=== PATIENT | female | born 1960 | race Caucasian/White ===

== ENCOUNTER 2019-12-05 06:53 | Inpatient (IN) ==
[2019-11-28 17:27] LABS: Appearance,Urine HAZY; Bacteria,Urine 0 /hpf (0); Bilirubin,Urine NEG (NEG); Color,Urine YELLOW; Culture Indicated,Urine YES; Glucose,Urine (UA) NEGATIVE (NEG); Ketones,Urine NEG (NEG); Leukocyte Esterase,Urine 500 /uL (NEG); Mucus,Urine FEW /hpf (0); Nitrate,Urine NEG (NEG); Protein,Urine NEG (NEG); Specific Gravity,Urine 1.014 (1.000-1.035); Urine Blood NEG mg/dL (<0.03); Urine RBC 2 /hpf (0-1); Urine Squamous Epithelial Cell 2 /hpf (0-4); Urine WBC 21 /hpf (0-4); Urobilinogen,Urine NEG (NEG)
[2019-11-28 19:45] LABS: Basophils # (Auto) 0.01 K/mcL (0.00-0.30); Basophils % (Auto) 0.2 % (0.0-2.0); Blood Urea Nitrogen 14 mg/dl (6-20); Calcium 10.2 mg/dl (8.6-10.4); Carbon Dioxide 27 mmol/L (22-30); Chloride 99 mmol/L (96-108); Eosinophils # (Auto) 0.03 K/mcL (0.00-0.70); Eosinophils % (Auto) 0.7 % (0.0-7.0); Glomerular Filtration Rate 96; Glucose 93 mg/dL (70-105); Granulocytes % (Auto) 71.1 % (38.0-78.0); Hemoglobin 12.4 g/dL (11.2-15.7); Lymphocytes # (Auto) 0.74 K/mcL (1.50-4.80); Mean Cell Volume 102.5 fL (80.0-100.0); Mean Corpuscular HGB Conc 33.5 g/dL (31.0-36.0); Mean Platelet Volume 9.6 fL (7.4-10.4); Monocytes # (Auto) 0.41 K/mcL (0.10-0.90); Platelet Count 208 K/mcL (140-440); RBC 3.61 M/mcL (3.59-5.38); Red Cell Distribution Width 12.7 % (11.5-14.5); WBC 4.1 K/mcL (4.50-11.00)
[~2019-12-05 06:53] MED LIST: 0.9 % SODIUM CHLORIDE 9 ML, KETOROLAC 30 MG, ROPIVACAINE HCL/PF 49.5 ML, EPINEPHrine 0.... IJ SCH; ACETAMINOPHEN 500 MG TABLET PO SCH; CELECOXIB 200 MG CAPSULE PO SCH; PREGABALIN 75 MG CAPSULE PO SCH; ceFAZolin 2 GM in DEXTROSE 5% IN WATER 50 ML IV SCH; oxyCODONE 10 MG TAB.ER.12H PO SCH
[2019-12-05] MEDS ORDERED: SCOPOLAMINE 1 PATCH PATCH TOPICAL PRN (07:00)
[2019-12-05] MEDS ORDERED: IPRATROPIUM/ALBUTEROL 3 ML AMPUL.NEB NEB PRN ×2 (07:00→10:19)
[2019-12-05] MEDS ORDERED: PHENYLEPHRINE 10 MG/ML VIAL IV ONE (09:15)
[2019-12-05] MEDS ORDERED: KETAMINE 100 MG/ML ML IV ONE (09:15)
[2019-12-05] MEDS ORDERED: LIDOCAINE HCL/PF 100 MG/5 ML SYRINGE IV ONE (09:15)
[2019-12-05] MEDS ORDERED: GLYCOPYRROLATE 0.2 MG/ML VIAL IV ONE (09:15)
[2019-12-05] MEDS ORDERED: ONDANSETRON 4 MG/2 ML VIAL IV ONE (09:15)
[2019-12-05] MEDS ORDERED: ePHEDrine 50 MG/ML AMPUL IV ONE (09:15)
[2019-12-05] MEDS ORDERED: DEXAMETHASONE 10 MG/ML VIAL IV ONE (09:15)
[2019-12-05] MEDS ORDERED: TRANEXAMIC ACID 1,000 MG/10 ML VIAL IV ONE ×2 (09:15→10:20)
[2019-12-05] MEDS ORDERED: PROPOFOL 200 MG/20 ML VIAL IV ONE (09:15)
[2019-12-05] MEDS ORDERED: GENTAMICIN SULFATE 800 MG/20 ML VIAL IR ONE (09:36)
[2019-12-05] MEDS ORDERED: NALOXONE HCL 0.4 MG/ML VIAL IV PRN (10:19)
[2019-12-05] MEDS ORDERED: BENZOCAINE/MENTHOL 1 LOZENGE PO PRN ×2 (10:19→10:20)
[2019-12-05] MEDS ORDERED: diphenhydrAMINE 50 MG/ML VIAL IV PRN (10:19)
[2019-12-05] MEDS ORDERED: PROMETHAZINE 25 MG/ML VIAL IV PRN (10:19)
[2019-12-05] MEDS ORDERED: KETOROLAC 15 MG/ML VIAL IV PRN (10:19)
[2019-12-05] MEDS ORDERED: FLUMAZENIL 0.1 MG/ML ML IV PRN (10:19)
[2019-12-05] MEDS ORDERED: fentaNYL 100 MCG/2 ML VIAL IV PRN (10:19)
[2019-12-05] MEDS ORDERED: LACTATED RINGERS 250 ML IV PRN (10:19)
[2019-12-05] MEDS ORDERED: MEPERIDINE 25 MG/ML SYRINGE IV PRN (10:19)
[2019-12-05] MEDS ORDERED: ONDANSETRON 4 MG/2 ML VIAL IV PRN ×2 (10:19→10:20)
[2019-12-05] MEDS ORDERED: ACETAMINOPHEN 325 MG TABLET PO PRN (10:20)
[2019-12-05] MEDS ORDERED: FLEETS ADULT ENEMA PR PRN (10:20)
[2019-12-05] MEDS ORDERED: HYDROmorphone 2 MG/ML VIAL IV PRN (10:20)
[2019-12-05] MEDS ORDERED: BISACODYL 10 MG SUPP.RECT PR PRN (10:20)
[2019-12-05] MEDS ORDERED: POLYETHYLENE GLYCOL 3350 17 GM PACKET PO PRN (10:20)
[2019-12-05] MEDS ORDERED: TEMAZEPAM 15 MG CAPSULE PO PRN (10:20)
[2019-12-05] MEDS ORDERED: MAGNESIUM HYDROXIDE 30 ML ORAL.SUSP PO PRN (10:20)
--- NOTE | 2019-12-05 10:20 | Brief Operative Note ---
Date of procedure: 12/05/19 Pre-op diagnosis: Right hip djd Post-op diagnosis: same Procedure: Right liz Grafts/Implants: Yes Anesthesia: GETA Surgeon: Ino Bautista Podiatric Medicine Professor: Ramesh Fontanez Estimated blood loss (cc): 100 Specimens Removed/Pathology: none sent Condition: stable Disposition: PACU
[2019-12-05] MEDS ORDERED: PREGABALIN 75 MG CAPSULE PO PRN (10:25)
[2019-12-05] MEDS ORDERED: oxyCODONE HCL 5 MG TABLET PO PRN (10:25)
[2019-12-05] MEDS ORDERED: LACTATED RINGERS 1,000 ML IV SCH ×2 (10:30)
--- NOTE | 2019-12-05 10:40 | Discharge Summary ---
Ortho Discharge - CRUZITO - Patient Instructions Diet: Regular Diet Activity: activity as tolerated, weight bearing as tolerated Total Hip Protocol: Follow activity instructions as provided by Physical Therapy. Dressing Care: May shower in 2 days - Follow Up Plan Disposition: Home, Self-Care Prognosis: Good Rehab Potential: Good I certify that the patient requires SNF services: No Overall status at discharge: patient is progressing back to baseline - Orders For Discharge Prescriptions: Docusate Sodium [Colace] 100 mg PO BID #60 cap Transmission Status: Pending to [facility] Aspirin [Ecotrin] 325 mg PO BID #60 tab.ec Transmission Status: Pending to [facility] oxyCODONE HCL [Oxycodone HCl] 5 mg PO Q4-6HP PRN #75 tab PRN Reason: Pain Prescription Printed
--- NOTE | 2019-12-05 10:50 | Operative Note ---
DATE OF OPERATION: 12/05/2019 PREOPERATIVE DIAGNOSIS: Right hip degenerative arthritis. POSTOPERATIVE DIAGNOSIS: Right hip degenerative arthritis. PROCEDURE: Right total hip arthroplasty. SURGEON: Ino Bautista M.D. EXTRACTIVE METALLURGIST: Ramesh Fontanez PA-C. The PA's assistance was required for the safe and efficient completion of the entire case. This provider's expertise and technical skill were required throughout the case. The PA assisted with preoperative coordination, intraoperative retraction, wound closure, dressing and splint application, as well as postoperative documentation and care coordination. ANESTHESIA: General LMA anesthesia. COMPLICATIONS: None. IMPLANTS: Size 52 cup with a 35 mm screw and a 36 mm ceramic ball with a hooded liner highly cross-linked polyethylene, size 4 stem. ESTIMATED BLOOD LOSS: About 100 mL. DESCRIPTION OF PROCEDURE: The patient was brought to the operating room and put to sleep with general LMA anesthesia. Once asleep, the patient had the right hip sterilely prepped and draped in the usual sterile fashion> She was put on the operative table, and the right hip was sterilely prepped. We made a superior approach to the hip after receiving antibiotics and tranexamic acid. We made a superior approach where we released the superior capsule and the piriformis and dislocated the hip superiorly. We made our neck cut at 32 mm from the center of hip rotation and then subluxed the hip anteriorly. I was then able to ream the acetabulum up to the size of 52 and implanted a 52 cup. Once this was done, we were able to place one 35 mm screw in the 52 mm cup with a highly cross-linked polyethylene hooded liner. We then prepared the stem, broached up to the size 4. We took images showing the legs to be symmetrically aligned in leg length and offset. We broached the femur up to the size 4, placed a size 4 cementless stem with a small amount of cement distally to help with stability. We irrigated thoroughly and reduced the hip with a standard neck length on the ball. The patient tolerated this well. There were no complications. We closed the capsule with #1 Ethibond, closed the fascial layer with #1 Stratafix, closed the skin with Stratafix and adhesive closure. The patient tolerated this well without complication. Blood loss was about 100 mL. RBAlejandra:isidoro Job ID: [id number] Doc ID: [id number] Ino Bautista MD
--- NOTE | 2019-12-05 11:41 | XRay Report ---
CLINICAL INFORMATION: Post-op Total Hip COMPARISON: Preoperative films 06/29/2018 FINDINGS: Right total hip prostheses is anatomically aligned. No osseous abnormality. Older left total hip prostheses is also anatomically aligned without infection or loosening. Soft tissue swelling over the surgical site. IMPRESSION: Negative Interpreted and Authenticated by: Mika Johnson 12/05/19
[2019-12-05] MEDS: FERROUS SULFATE 325 MG TABLET PO SCH ×2 (12:14→19:10)
[2019-12-05] MEDS: oxyCODONE HCL 5 MG TABLET PO PRN ×3 (12:14→20:31)
[2019-12-05] MEDS: KETOROLAC 15 MG/ML VIAL IV PRN ×2 (12:15→19:11)
--- NOTE | 2019-12-05 12:45 | XRay Report ---
CLINICAL INFORMATION: right total hip COMPARISON: None. FINDINGS: Intraoperative AP film of the pelvis shows femoral stem template in anatomic position. Right acetabular prosthesis is also anatomically aligned. No osseous abnormalities IMPRESSION: Intraoperative film as described Interpreted and Authenticated by: Mika Johnson 12/05/19
[2019-12-05] MEDS ORDERED: ceFAZolin 1 GM VIAL ONE (14:49)
[2019-12-05] MEDS: ceFAZolin 1 GM VIAL IV SCH ×2 (16:14→21:54)
[2019-12-05] MEDS: 0.9 % SODIUM CHLORIDE 10 ML SYRINGE IV SCH ×3 (16:15→21:55)
[2019-12-05] MEDS: ASPIRIN 325 MG ENTERIC COATED TABLET PO SCH (20:29)
[2019-12-05] MEDS: MONTELUKAST 10 MG TABLET PO SCH (20:29)
[2019-12-05] MEDS: SENNOSIDES 1 TABLET PO SCH (20:30)
[2019-12-05] MEDS: FAMOTIDINE 20 MG TABLET PO SCH (20:30)
[2019-12-05] MEDS: MELATONIN 3 MG TABLET PO SCH (20:30)
[2019-12-05] MEDS: DOCUSATE SODIUM 100 MG CAPSULE PO SCH (20:30)
[2019-12-05] MEDS: azaTHIOprine 50 MG TABLET PO SCH (20:32)
[2019-12-05] MEDS: FIBER GUMMIES PO SCH (20:35)
[2019-12-05] MEDS: CALCIUM W/VIT D3 500 MG TABLET PO SCH (20:40)
[2019-12-05] MEDS: MULTIVIT,THER IRON,CA,FA & MIN 1 TABLET PO SCH (20:41)
[2019-12-05] MEDS ORDERED: RANITIDINE HCL 150 MG PO SCH (21:00)
[2019-12-06] MEDS: oxyCODONE HCL 5 MG TABLET PO PRN ×4 (00:32→21:19)
[2019-12-06] MEDS: KETOROLAC 15 MG/ML VIAL IV PRN ×2 (04:21→19:45)
[2019-12-06] MEDS: 0.9 % SODIUM CHLORIDE 10 ML SYRINGE IV SCH ×2 (05:32→15:57)
[2019-12-06] MEDS: LACTATED RINGERS 1,000 ML IV SCH ×3 (06:07→16:35)
[2019-12-06] MEDS ORDERED: LACTATED RINGERS 500 ML IV ONE (08:05)
[2019-12-06] MEDS: predniSONE 5 MG TABLET PO SCH (08:30)
[2019-12-06] MEDS: LEVOTHYROXINE 88 MCG TABLET PO SCH (08:30)
[2019-12-06] MEDS: azaTHIOprine 50 MG TABLET PO SCH ×2 (08:49→21:29)
[2019-12-06] MEDS: CYANOCOBALAMIN (VITAMIN B-12) 500 MCG TABLET PO SCH (08:49)
[2019-12-06] MEDS: ASPIRIN 325 MG ENTERIC COATED TABLET PO SCH ×2 (08:51→21:19)
[2019-12-06] MEDS: FAMOTIDINE 20 MG TABLET PO SCH ×2 (08:51→21:24)
[2019-12-06] MEDS: FISH OIL 1,000 MG CAPSULE PO SCH (08:52)
[2019-12-06] MEDS: DOCUSATE SODIUM 100 MG CAPSULE PO SCH ×2 (08:52→21:18)
[2019-12-06] MEDS: FOLIC ACID 1 MG TABLET PO SCH (08:53)
[2019-12-06] MEDS: APPLE CIDER VINEGAR 600 MG PO SCH (08:56)
[2019-12-06] MEDS: ALBUTEROL SULFATE 1 PUFF INHALER INH SCH (08:58)
[2019-12-06] MEDS: [UNRECOGNIZED DRUG - OTHER] PO SCH (09:58)
[2019-12-06] MEDS: PROTANDIM PO SCH (09:59)
[2019-12-06] MEDS: ACETAMINOPHEN 500 MG TABLET PO SCH (10:02)
[2019-12-06] MEDS: FERROUS SULFATE 325 MG TABLET PO SCH ×2 (12:42→17:40)
[2019-12-06] MEDS ORDERED: HYDROCORTISONE SOD SUCC 100 MG VIAL IV ONE (12:44)
[2019-12-06] MEDS ORDERED: 0.9 % SODIUM CHLORIDE 250 ML IV SCH (12:45)
--- NOTE | 2019-12-06 13:03 | Internal Medicine Consult Note ---
Medical - CN: [facility] - Data of Consult Consult date: 12/06/19 Requesting physician: Ino Bautista - Consult Narrative Reason for consult: hypotension History of present illness: Ms. Wilson is a 59 year old F Presented yesterday for elective total right hip arthroplasty. During the night she had a little bit of nausea vomiting and poor sleep as she usually takes a sleep aid at night. Dates she is felt relatively well. However she did note she did get some light headedness when she walked to the bathroom. Per the nursing she has had low blood pressures today. Blood pressures have been I believe 1 reported 60 this morning typically 80s to 90s. She does take prednisone 2.5 mg daily for relapsing polychondritis. Her hematocrit is noted have dropped quite a bit from a preop lab. On the she had a hematocrit of 37. This morning she was 22.7 with a follow-up at 10:00 which is 22. Dressing appears to be intact notes any significant bruising. No shortness of breath. No chest pain. Denies diarrhea. Review of Systems: Pertinent positives as above. Denies headache/fever/chills/nausea/vomiting/chest or abdominal pain/cough/dyspnea/diarrhea. Remaining 10 point review of system reviewed negative CC: Ino Bautista Medical - CN: [facility] Surgical history: Medical History (Last Updated 08/03/18 @ 17:54 by Rosemary Del Angel DNP, JACKIE) Insomnia (Chronic) Hypothyroidism (Chronic) Hip pain, chronic (Chronic) Joint pain (Chronic) Arthritis (Chronic) Efrain's disease (Resolved ~1996) Asthma (Chronic) Long-term current use of steroids (Chronic) Encounter for long-term current use of other high-risk medications (Chronic) Osteoarthritis of lumbar spine (Chronic) Rheumatic disease (Chronic) Relapsing polychondritis (Chronic ~2014) Candidiasis of mouth (Resolved) Elevated liver function tests (Resolved) Past Surgical History (Last Reviewed 08/03/18 @ 16:21 by Rosemary Del Angel DNP, JACKIE) History of laparotomy (Chronic ~2005) History of hip replacement (Chronic ~2014) History of cataract surgery (Chronic) History of hysterectomy (Chronic ~1996) Hx of colonoscopy (Chronic) Family History (Last Reviewed 08/03/18 @ 16:21 by Rosemary Del Angel DNP, JACKIE) Mother Arthritis Diabetes Hip dysplasia COPD (chronic obstructive pulmonary disease) Father Diabetes Hypertension Heart attack Grandfather Thyroid disease Social History (Last Updated 08/03/18 @ 17:57 by Rosemary Del Angel, DNP, EMERGENCY SERVICE WORKER) Patient quit smoking 3 years ago drinks alcohol rarely lives by herself Medical - CN: Meds Home Medications Medication Instructions Recorded Confirmed Type levothyroxine 88 mcg capsule 88 mcg PO ACB cap 06/13/15 11/28/19 History montelukast 10 mg tablet 10 mg PO HS tab 06/13/15 11/28/19 History ranitidine HCl 150 mg capsule 150 mg PO BID 30 Days #60 cap 05/22/16 11/28/19 Rx azathioprine 50 mg tablet 100 mg PO DAILY tab 06/18/18 12/05/19 History folic acid 1 mg tablet 5 mg PO DAILY 08/03/18 11/28/19 History melatonin 5 mg capsule 5 mg PO HS cap 08/03/18 11/28/19 History prednisone 5 mg tablet 2.5 mg PO QAMCC 08/03/18 11/28/19 History Acetaminophen [Tylenol Extra 1,500 mg PO DAILY 11/28/19 12/05/19 History Strength] Albuterol Sulfate [Ventolin] 1 puff INH DAILY 11/28/19 11/28/19 History Calcium Carbonate/Vitamin D3 2 tab PO HS 11/28/19 12/05/19 History [Calcium 500-Vit D3 200 Tablet] Cider Vinegar [Apple Cider Vinegar] 600 mg PO DAILY 11/28/19 12/05/19 History Cyanocobalamin (Vitamin B-12) 1,000 mcg PO DAILY 11/28/19 12/05/19 History [Vitamin B-12] Ferrous Sulfate [Iron] 325 mg PO BID@11/28/19 12/05/19 History Glucosamine/D3/Boswellia Azul 2 tab PO DAILY 11/28/19 11/28/19 History [Osteo Bi-Flex Tablet] Inulin/Chromium Picolinate [Fiber 2 tab PO HS 11/28/19 11/28/19 History Gummies] Multivit,Ther Iron,Ca,FA & Min 2 tab PO HS 11/28/19 11/28/19 History [Multivitamin W/Minerals] Arnett-3 Fatty Acids/Fish Oil [Fish 1 cap PO DAILY 11/28/19 11/28/19 History Oil 1,000 mg Capsule] Pregabalin 75 mg PO HSP PRN 11/28/19 11/28/19 History Protandim 1 cap PO DAILY 11/28/19 11/28/19 History Vitamin C/Biotin [Acdf-Ompi-Gasix 2 tab PO DAILY 11/28/19 11/28/19 History Gummies] Vitamin D3 6,000 unit PO HS 11/28/19 11/28/19 History Wheat Dextrin [Benefiber] 2 packet PO DAILY 11/28/19 11/28/19 History azaTHIOprine [Azathioprine] 50 mg PO HS 11/28/19 12/05/19 History Aspirin [Ecotrin] 325 mg PO BID #60 tab.ec 12/05/19 Rx Docusate Sodium [Colace] 100 mg PO BID #60 cap 12/05/19 Rx oxyCODONE HCL [Oxycodone HCl] 5 mg PO Q4-6HP PRN #75 tab 12/05/19 Rx Allergies Allergy/AdvReac Type Severity Reaction Status Date / Time animal dander AdvReac Severe Sneezing Verified 12/05/19 08:00 Medical - CN: Exam - Constitutional Vitals: Temp Pulse Resp BP Pulse Ox 99.2 F H 66 16 92/60 98 12/06/19 11:16 12/06/19 11:16 12/06/19 11:16 12/06/19 11:16 12/06/19 11:16 Exam: General: Alert, Awake, No acute Distress Eyes/N/T: EOMI, PERRL, MMM Head/Neck: neck supple, normocephalic atraumatic CV: RRR, No murmurs, normal s1/s2 Pulm: Clear b/l, no wheezing/rhonchi/rales Abd: soft, nontender, +BS x4 Ext: no clubbing/cyanosis, trace LE edema. hip dressing c/d/i Neuro: Alert, no focal deficits, moves all extremities, CN 2-12 grossly intact, symmetrical strength b/l upper/lower, sensations intact b/l upper/lower Skin: warm/dry Medical - CN: Result - Labs CBC & Chem 7: 12/06/19 09:58 11/28/19 14:27 Labs: Short CBC 12/06/19 12/06/19 Range/Units 05:20 09:58 Hct 22.7 L 22.0 L (34.1-44.9) % Medical - CN: A/P - Narrative A/P Narrative: A: *Hypotension: / anemia vs adrenal insufficiency from chronic prednisone use although only on 2.5mg daily or combination of both -responded initially to IVF's, but low again *Macrocytic Anemia, post-op on ?chronic: some dilution component *Relapsing polychondritis: Follows with Dr. Torres and is on prednisone 2.5 mg daily and azathioprine *Hypothyroidism: *GERD: *Chronic low back pain and neuropathy: Follows with pain management *s/p Right CRUZITO (12/05) *insomnia: P: -blood transfusion and f/u H&H -IV hydrocortisone for potential adrenal component (stress dosing) -labs ordered -toy maker -narcotics held while low BP -anemia w/u including b12 and folate -cont home meds -pt/ot -ppx: post op per ortho / foot pumps
[2019-12-06] MEDS ORDERED: diphenhydrAMINE 25 MG CAPSULE PO PRN (13:09)
[2019-12-06 14:25] LABS: Retic Absolute 0.03 M/mcL (0.02-0.10)
[2019-12-06 14:44] LABS: ALT/SGPT 20 U/l (0-40); AST/SGOT 44 U/l (0-37); Albumin 3.5 gm/dL (3.2-5.2); Albumin/Globulin Ratio 1.9 (1.0-2.3); Alkaline Phosphatase 50 U/L (39-117); Bilirubin,Direct < 0.2 mg/dL (0.0-0.3); Bilirubin,Total 0.5 mg/dL (0.0-1.0); Blood Urea Nitrogen 18 mg/dl (6-20); Carbon Dioxide 25 mmol/L (22-30); Chloride 96 mmol/L (96-108); Globulin 1.8 gm/dL (2.2-3.7); Glomerular Filtration Rate 81; Glucose 127 mg/dL (70-105); Lactate Dehydrogenase 171 U/L (94-250); Phosphorous 3.3 mg/dL (2.7-4.5); Triglycerides 115 mg/dl (<150); Uric Acid 2.7 mg/dL (2.5-8.0)
[2019-12-06 14:46] LABS: Iron 39 mcg/dl (37-145); TIBC Calculation 165 ug/dl (228-428); Transferrin % Saturation 23 % (15-50)
[2019-12-06 14:57] LABS: Ferritin 130.7 ng/ml (13-150)
[2019-12-06 20:02] LABS: Hematocrit 25.1 % (34.1-44.9); Hemoglobin 8.8 g/dL (11.2-15.7)
[2019-12-06] MEDS ORDERED: VITAMIN D3 5,000 UNIT CAPSULE PO SCH (21:00)
[2019-12-06] MEDS ORDERED: MELATONIN 3 MG TABLET PO SCH (21:00)
[2019-12-06] MEDS: MULTIVIT,THER IRON,CA,FA & MIN 1 TABLET PO SCH (21:17)
[2019-12-06] MEDS: SENNOSIDES 1 TABLET PO SCH (21:18)
[2019-12-06] MEDS: MELATONIN 3 MG TABLET PO SCH (21:18)
[2019-12-06] MEDS: MONTELUKAST 10 MG TABLET PO SCH (21:18)
[2019-12-06] MEDS: CALCIUM W/VIT D3 500 MG TABLET PO SCH (21:19)
[2019-12-06] MEDS: FIBER GUMMIES PO SCH (21:25)
[2019-12-07] MEDS: LACTATED RINGERS 1,000 ML IV SCH (01:02)
[2019-12-07] MEDS: 0.9 % SODIUM CHLORIDE 10 ML SYRINGE IV SCH ×2 (01:02→06:25)
[2019-12-07 06:32] LABS: Hematocrit 24.1 % (34.1-44.9); Hemoglobin 8.2 g/dL (11.2-15.7)
[2019-12-07 06:57] LABS: Blood Urea Nitrogen 14 mg/dl (6-20); Calcium 8.9 mg/dl (8.6-10.4); Carbon Dioxide 27 mmol/L (22-30); Chloride 105 mmol/L (96-108); Glomerular Filtration Rate 96; Glucose 95 mg/dL (70-105)
[2019-12-07] MEDS: LEVOTHYROXINE 88 MCG TABLET PO SCH (07:25)
[2019-12-07] MEDS: oxyCODONE HCL 5 MG TABLET PO PRN (07:44)
--- NOTE | 2019-12-07 08:17 | Internal Med Progress Note ---
Medical - PN: Subj Patient information: Note initiated : 12/07/19 at 8:16 am Service Date, if different from initiated Date: [] Patient: Rina Wilson a 59 y/o F admitted on 12/05/19 for Right Total Hip Arthroplasty . Chief Complaint: [] Interval history: Ms. Wilson is a 59 year old F Presented yesterday for elective total right hip arthroplasty. During the night she had a little bit of nausea vomiting and poor sleep as she usually takes a sleep aid at night. Dates she is felt relatively well. However she did note she did get some light headedness when she walked to the bathroom. Per the nursing she has had low blood pressures today. Blood pressures have been I believe 1 reported 60 this morning typically 80s to 90s. She does take prednisone 2.5 mg daily for relapsing polychondritis. Her hematocrit is noted have dropped quite a bit from a preop lab. On the she had a hematocrit of 37. This morning she was 22.7 with a follow-up at 10:00 which is 22. Dressing appears to be intact notes any significant bruising. No shortness of breath. No chest pain. Denies diarrhea. 12/07 Poor sleep because of interruptions. But a little better than previous night. Feels little foggy this morning otherwise no new complaints. There is reported a mild fever last night although the patient states she did not clinically feel feverish. Blood pressure has been much improved. Hemoglobin dropped a little bit from yesterday's posttransfusion lab. Patient has no gross bleeding. Was recently treated for urinary tract infection. Review of Systems: denies headache/fever/chills/nausea/vomiting/chest or abdominal pain/cough/dyspnea/diarrhea. Otherwise see above. - Constitutional Vitals: Vital Signs Temp Pulse Resp BP Pulse Ox 98.9 F 70 12 100/52 97 12/07/19 04:06 12/07/19 04:06 12/07/19 04:06 12/07/19 04:06 12/07/19 04:06 Period Temp Pulse Resp BP Sys/Douglas Pulse Ox Last 24 Hr 98.9 F-100.9 F 66-77 12-16 92-114/48-62 95-99 Intake and Output 02/25/20 02/26/20 02/26/20 21:59 05:59 13:59 Intake Total 1356 875 240 Output Total 4225 900 680 Balance -2869 -25 -440 Weight 72.575 kg Intake & Output: Intake & Output 12/06/19 12/07/19 12/07/19 21:59 05:59 13:59 Intake Total 1356 875 240 Output Total 4225 900 680 Balance -2869 -25 -440 Weight 72.575 kg Intake: IV 1000 Lactated Ringers 1,000 ml @ 100 1000 mls/hr IV .Q10H [facility] Rx#: [id number] Oral 875 240 Blood Product 356 Output: Void Amount 9464 866 680 Other: Meal Dinner Percent of Meal Consumed 75% Feeding Ability Independent Urine Appearance Clear Urine Color Bright Yellow Urine Odor Normal Normal Exam: General: Alert, Awake, No acute Distress Eyes/N/T: EOMI, Head/Neck: neck supple, CV: RRR, No murmurs, Pulm: Clear b/l, no wheezing/rhonchi/rales Abd: soft, nontender, +BS x4 Ext: no clubbing/cyanosis, trace b/l LE edema. Neuro: Alert, no focal deficits, moves all extremities, Skin: warm/dry Medical - PN: Obj Da - Labs CBC & Chem 7: 12/07/19 05:45 12/07/19 05:44 Labs: Abnormal Lab Results 12/07/19 12/06/19 12/06/19 05:45 19:04 13:37 Hgb 8.2 L 8.8 L Hct 24.1 L 25.1 L Percent Retic Sodium Glucose TIBC 165 L AST Total Protein Globulin Folate 12/06/19 12/06/19 12/06/19 13:36 13:36 13:09 Hgb Hct Percent Retic 1.63 H Sodium 130 L Glucose 127 H TIBC AST 44 H Total Protein 5.3 L Globulin 1.8 L Folate > 20.0 H 12/06/19 12/06/19 09:58 05:20 Hgb Hct 22.0 L 22.7 L Percent Retic Sodium Glucose TIBC AST Total Protein Globulin Folate Meds: Medications Acetaminophen (Tylenol) 650 mg PO Q6HP PRN; Protocol PRN Reason: Per Pain Protocol/Fever > 101 Last Admin: 12/06/19 23:28 Dose: 650 mg Documented by: Acetaminophen (Tylenol) 1,500 mg PO DAILY [facility]; Protocol Last Admin: 12/06/19 10:02 Dose: 1,500 mg Documented by: Albuterol Sulfate (Ventolin) 1 puff INH DAILY [facility] Last Admin: 12/06/19 08:58 Dose: Not Given Documented by: Aspirin (Ecotrin) 325 mg PO BID [facility] Last Admin: 12/06/19 21:19 Dose: 325 mg Documented by: Azathioprine (Imuran) 50 mg PO HS [facility] Last Admin: 12/06/19 21:29 Dose: 50 mg Documented by: Azathioprine (Imuran) 100 mg PO DAILY [facility] Last Admin: 12/06/19 08:49 Dose: 100 mg Documented by: Bisacodyl (Dulcolax) 10 mg SC Q2-3DAYS PRN PRN Reason: Constipation Calcium/Vitamin D (Calcium W/Vit D3) 1,000 mg PO [facility] Last Admin: 12/06/19 21:19 Dose: 500 mg Documented by: Cyanocobalamin (Vitamin B-12) 1,000 mcg PO DAILY [facility] Last Admin: 12/06/19 08:49 Dose: 1,000 mcg Documented by: Diphenhydramine HCl (Benadryl) 25 mg PO HSP PRN PRN Reason: Insomnia Last Admin: 12/06/19 21:19 Dose: 25 mg Documented by: Docusate Sodium (Colace) 100 mg PO BID [facility] Last Admin: 12/06/19 21:18 Dose: 100 mg Documented by: Famotidine (Pepcid) 20 mg PO BID [facility] Last Admin: 12/06/19 21:24 Dose: 20 mg Documented by: Ferrous Sulfate (Ferrous Sulfate) 325 mg PO BID@12,18 [facility] Last Admin: 12/06/19 17:40 Dose: 325 mg Documented by: Fish Oil (Fish Oil) 1,000 mg PO DAILY [facility] Last Admin: 12/06/19 08:52 Dose: 1,000 mg Documented by: Folic Acid (Folic Acid) 5 mg PO DAILY [facility] Last Admin: 12/06/19 08:53 Dose: 5 mg Documented by: Hydromorphone HCl (Dilaudid) 0 mg IV Q2HP PRN; Protocol PRN Reason: Per Pain Protocol Lactated Ringer's (Lactated Ringers) 1,000 mls @ 100 mls/hr IV .Q10H [facility] Last Admin: 12/07/19 01:02 Dose: 100 mls/hr Documented by: Iron Carb/Multivit/Systems Software Manager/Folic Acid (Multivitamin W/Minerals) 2 tab PO [facility] Last Admin: 12/06/19 21:17 Dose: 1 tab Documented by: Ketorolac Tromethamine (Toradol) 15 mg IV Q6HP PRN; Protocol PRN Reason: Per Pain Protocol Stop: 12/07/19 10:21 Last Admin: 12/06/19 19:45 Dose: 15 mg Documented by: Levothyroxine Sodium (Synthroid) 88 mcg PO QAMAC [facility] Last Admin: 12/07/19 07:25 Dose: 88 mcg Documented by: Magnesium Hydroxide (Milk Of Magnesia) 30 ml PO BIDP PRN PRN Reason: Constipation Melatonin (Melatonin 3mg Tablet) 3 mg PO [facility] Last Admin: 12/06/19 21:18 Dose: 3 mg Documented by: Melatonin (Melatonin 3mg Tablet) 3 mg PO QHS [facility] Last Admin: 12/06/19 21:24 Dose: Not Given Documented by: Montelukast Sodium (Singular) 10 mg PO [facility] Last Admin: 12/06/19 21:18 Dose: 10 mg Documented by: Ondansetron HCl (Zofran) 4 mg IV Q4HP PRN; Protocol PRN Reason: Nausea And Vomiting Oxycodone HCl (Roxicodone) 0 mg PO Q4HP PRN; Protocol PRN Reason: Per Pain Protocol Last Admin: 12/07/19 07:44 Dose: 5 mg Documented by: Apple Cider Vinegar] (600 Mg) 600 dose PO DAILY [facility] Last Admin: 12/06/19 08:56 Dose: Not Given Documented by: Osteo Bi-Flex Tab 2 dose PO DAILY [facility] Last Admin: 12/06/19 09:58 Dose: Not Given Documented by: Fiber Gummies Tab 2 dose PO [facility] Last Admin: 12/06/19 21:25 Dose: Not Given Documented by: Protandim 1 Cap 1 dose PO DAILY [facility] Last Admin: 12/06/19 09:59 Dose: Not Given Documented by: Hair, Skin And Nails (Gummies Tab) 2 dose PO DAILY [facility] Last Admin: 12/06/19 09:58 Dose: Not Given Documented by: Benefiber Packet 2 dose PO DAILY [facility] Last Admin: 12/06/19 09:58 Dose: Not Given Documented by: Polyethylene Glycol (Miralax) 17 gm PO DAILYP PRN PRN Reason: Constipation Prednisone (Prednisone) 2.5 mg PO [facility] Last Admin: 12/06/19 08:30 Dose: 2.5 mg Documented by: Pregabalin (Lyrica) 75 mg PO HSP PRN PRN Reason: Pain Senna (Senokot) 2 tab PO [facility] Last Admin: 12/06/19 21:18 Dose: 2 tab Documented by: Sodium Biphosphate/Sodium Phosphate (Fleets Adult) 1 dose SC Q3-4DAYS PRN PRN Reason: Constipation Sodium Chloride (Saline Flush) 10 ml IV Q8 [facility] Last Admin: 12/07/19 06:25 Dose: Not Given Documented by: Temazepam (Restoril) 15 mg PO HSP PRN PRN Reason: Insomnia Last Admin: 12/05/19 22:18 Dose: 15 mg Documented by: Throat Lozenges (Cepacol) 1 lozenge PO PRN PRN PRN Reason: Sore Throat Last Admin: 12/05/19 16:38 Dose: 1 lozenge Documented by: Vitamin D (Vitamin D3) 5,000 unit PO [facility] Last Admin: 12/06/19 21:25 Dose: Not Given Documented by: Medical - PN: A/P - Time Spent With Patient Total time spent is greater than 50% in coordination of care (as documented) at patient's floor/unit and/or counseling patient: - Narrative A/P Narrative: A: *Hypotension: 2/2 anemia vs adrenal insufficiency from chronic prednisone use although only on 2.5mg daily or combination of both -improved *Febrile last night Tm 100.9: -?atelectasis vs reactive *Macrocytic Anemia, post-op on ?chronic: some dilution component -b12/folate/iron ok -poor bone marrow response based on reticulocyte index *Relapsing polychondritis: Follows with Dr. Torres and is on prednisone 2.5 mg daily and azathioprine *Hypothyroidism: *GERD: *Chronic low back pain and neuropathy: Follows with pain management *s/p Right CRUZITO (12/05) *insomnia: P: -blood transfusion and f/u H&H this afternoon -IV hydrocortisone for potential adrenal component (stress dosing), d/c -check UA/CXR -prn transfusion -cont home meds -pt/ot -ppx: post op per ortho / foot Medical - PN: Qual - Stroke Symptom Onset Unknown: No - VTE Deep Vein Thrombosis/Pulmonary Embolism Present on Admission: No
[2019-12-07] MEDS ORDERED: HYDROCORTISONE SOD SUCC 100 MG VIAL IV ONE (08:19)
[2019-12-07] MEDS: ASPIRIN 325 MG ENTERIC COATED TABLET PO SCH (08:29)
[2019-12-07] MEDS: DOCUSATE SODIUM 100 MG CAPSULE PO SCH (08:29)
[2019-12-07] MEDS: FOLIC ACID 1 MG TABLET PO SCH (08:30)
[2019-12-07] MEDS: CYANOCOBALAMIN (VITAMIN B-12) 500 MCG TABLET PO SCH (08:30)
[2019-12-07] MEDS: FISH OIL 1,000 MG CAPSULE PO SCH (08:30)
[2019-12-07] MEDS: ACETAMINOPHEN 500 MG TABLET PO SCH (08:30)
[2019-12-07] MEDS: FAMOTIDINE 20 MG TABLET PO SCH (08:30)
[2019-12-07] MEDS: azaTHIOprine 50 MG TABLET PO SCH (08:31)
[2019-12-07] MEDS: predniSONE 5 MG TABLET PO SCH (08:31)
--- NOTE | 2019-12-07 08:41 | XRay Report ---
CLINICAL INFORMATION: Fever COMPARISON: 06/29/2015 FINDINGS: The heart size, mediastinum and pulmonary vessels are unremarkable. The lungs are clear. There are no effusions. The bones and soft tissues are within normal limits. IMPRESSION: Normal chest. Interpreted and Authenticated by: Mika Johnson 12/07/19
[2019-12-07] MEDS ORDERED: FUROSEMIDE 20 MG TABLET PO ONE (09:11)
[2019-12-07] MEDS: PROTANDIM PO SCH (10:24)
[2019-12-07] MEDS: APPLE CIDER VINEGAR 600 MG PO SCH (10:24)
[2019-12-07] MEDS: [UNRECOGNIZED DRUG - OTHER] PO SCH (10:24)
[2019-12-07] MEDS: ALBUTEROL SULFATE 1 PUFF INHALER INH SCH (10:25)
[2019-12-07 11:49] LABS: Appearance,Urine HAZY; Bacteria,Urine FEW /hpf (0); Bilirubin,Urine NEG (NEG); Color,Urine YELLOW; Culture Indicated,Urine NO; Glucose,Urine (UA) NEGATIVE (NEG); Ketones,Urine NEG (NEG); Leukocyte Esterase,Urine 500 /uL (NEG); Mucus,Urine FEW /hpf (0); Nitrate,Urine NEG (NEG); Protein,Urine NEG (NEG); Specific Gravity,Urine 1.012 (1.000-1.035); Urine Blood NEG mg/dL (<0.03); Urine RBC 3 /hpf (0-1); Urine Squamous Epithelial Cell 7 /hpf (0-4); Urine Transitional Epi Cells < 1 /hpf (0-2); Urine WBC 48 /hpf (0-4); Urobilinogen,Urine NEG (NEG)
[2019-12-07] MEDS: FERROUS SULFATE 325 MG TABLET PO SCH (12:04)
--- NOTE | 2019-12-07 13:50 | Orthopedic Progress Note ---
Subjective Patient information: Note initiated : 12/07/19 at 1:48 pm Service Date, if different from initiated Date: [] Patient: Rina Wilson 59 y/o F admitted on 12/05/19 for Right Total Hip Arthroplasty . Chief Complaint: [blood preasure and low hct have improved and no co sob nor cp nor dizziness ] Principal diagnosis: post op liz with loss of blood or low bp Interval history: recieved blood yesterday Objective Vital signs: Vital Signs Temp Pulse Resp BP BP Pulse Ox 12/07/19 12:00 98.3 F 73 12 99/59 100 12/07/19 08:00 99.0 F 69 12 101/50 99 12/07/19 04:06 98.9 F 70 12 100/52 97 12/07/19 01:29 100.3 F H 12/06/19 23:10 100.9 F H 75 12 105/55 95 12/06/19 19:41 100.1 F H 77 12 114/62 99 12/06/19 16:00 74 12/06/19 15:17 98.9 F 74 16 92/48 97 Intake and Output 12/06/19 12/07/19 12/07/19 21:59 05:59 13:59 Intake Total 1356 875 960 Output Total 4225 900 880 Balance -2868 80 Intake: IV 1000 Lactated Ringers 1,000 ml @ 100 1000 mls/hr IV .Q10H [facility] Rx#: [id number] Oral 875 960 Blood Product 356 Output: Void Amount 4225 900 880 Other: Meal Dinner Lunch Percent of Meal Consumed 75% 50% Feeding Ability Independent Urine Appearance Clear Urine Color Bright Yellow Urine Odor Normal Normal Stool Size Moderate Stool Color Brown Stool Consistency Soft Formed # Voids 1 # Bowel Movements 1 Weight 160 lb Intake & Output: Intake & Output 12/06/19 12/07/19 12/07/19 21:59 05:59 13:59 Intake Total 1356 875 960 Output Total 4225 900 880 Balance -2869 -25 80 Weight 160 lb Intake: IV 1000 Lactated Ringers 1,000 ml @ 100 1000 mls/hr IV .Q10H [facility] Rx#: [id number] Oral 875 960 Blood Product 356 Output: Void Amount 4225 900 880 Other: Meal Dinner Lunch Percent of Meal Consumed 75% 50% Feeding Ability Independent Urine Appearance Clear Urine Color Bright Yellow Urine Odor Normal Normal Stool Size Moderate Stool Color Brown Stool Consistency Soft Formed # Voids 1 # Bowel Movements 1 - Allied Health Allied health notes reviewed: social work (hct improved and no dizziness) - Labs CBC & BMP: 12/07/19 05:45 12/07/19 05:44 Labs: 12/07/19 12/06/19 12/06/19 05:45 19:04 09:58 Hgb 8.2 L 8.8 L Hct 24.1 L 25.1 L 22.0 L 12/06/19 11/28/19 05:20 14:27 Hgb 12.4 Hct 22.7 L 37.0
[2019-12-07 13:57] LABS: Appearance,Urine CLEAR; Bilirubin,Urine NEG (NEG); Color,Urine YELLOW; Culture Indicated,Urine NO; Glucose,Urine (UA) NEGATIVE (NEG); Ketones,Urine NEG (NEG); Leukocyte Esterase,Urine NEG /uL (NEG); Nitrate,Urine NEG (NEG); Protein,Urine NEG (NEG); Specific Gravity,Urine 1.011 (1.000-1.035); Urine Blood NEG mg/dL (<0.03); Urobilinogen,Urine NEG (NEG)
[2019-12-07 14:42] LABS: Hematocrit 23.7 % (34.1-44.9); Hemoglobin 8.1 g/dL (11.2-15.7)
[2019-12-07] MEDS ORDERED: PNEUMOCOCCAL 23-VAL P-SAC VAC 0.5 ML SYRINGE IM ONE (15:00)
--- NOTE | 2019-12-15 16:55 | Discharge Summary ---
DATE OF ADMISSION: 12/05/2019 DATE OF DISCHARGE: 12/07/2019 DATE OF ADMISSION: 12/05/2019 DATE OF DISCHARGE: 12/07/2019 ADMITTING DIAGNOSIS: Right hip degenerative osteoarthritis. DISCHARGE DIAGNOSIS: Right hip degenerative osteoarthritis status post right total hip arthroplasty. DESCRIPTION OF HOSPITAL COURSE: After being admitted to the hospital, the patient had a right total hip arthroplasty. After the total hip, the patient was admitted to the hospital for postoperative care from a standard total hip arthroplasty. The patient seemed to make good progress on postoperative day one. The patient did continue therapy and was ambulating well. By postop day 2 and 3, the patient was tolerating a regular diet and p.o. pain meds, without fevers, chills or shortness of breath. IVs were discontinued and Wolf discontinued on postop day two. The patient was required to stay an additional day in the hospital secondary to a postoperative anemia and did receive a unit of blood which was managed by Dr. Bautista. She also met the criteria for home discharge thereafter with stable blood pressure and ambulation among our standard safety discharge guidelines. The patient was subsequently discharged in good condition. DISCHARGE MEDICATIONS/EQUIPMENT: [place] 10/325, 1 p.o. q.4-6h. p.r.n. pain. Coumadin 2 mg, 1 p.o. daily. The patient was discharged with toilet riser and walker. COMPLICATIONS/OTHER DIAGNOSIS: None. DISCHARGE DISPOSITION: The patient will follow up with Dr. Bautista in two weeks and will continue physical therapy as prescribed. BAP:isidoro Job ID: [id number] Doc ID: [id number] Ramesh Fontanez PA-C
== END 2019-12-07 16:30 | disposition home or self-care (01) | DRG 470 ==
LOC: MEDSUR 06:53
PROVIDERS: ADMIT Orthopaedic Surgery; ATTEND Orthopaedic Surgery